=== PATIENT | female | born 1995 | race Caucasian/White ===

== ENCOUNTER 2020-10-08 18:07 | Emergency (ER) | payer OTHER ==
[~2020-10-08] VITALS: Ht 167.6 cm; Wt 140.6 kg
[2020-10-08] MEDS ORDERED: AZELASTINE205.5 MCG/ NARES (18:31)
[2020-10-08 19:02] LABS: CALCIUM 9.3 mg/dL (8.5-10.1); CREATININE 0.6 mg/dL (0.6-1.3)
[2020-10-08 19:13] LABS: ALBUMIN 3.7 g/dL (3.4-5.0); TOTAL BILIRUBIN 0.4 mg/dL (<0.1-1.0); TOTAL PROTEIN 8.4 g/dL (6.4-8.2)
[2020-10-08 19:29] LABS: ABSOLUTE MONOCYTES 0.4 thou/uL (0.0-1.2); ABSOLUTE NEUTROPHILS 7.1 thou/uL (1.6-8.1); BASOPHILS 0.4 %; EOSINOPHILS 0.3 %; HEMATOCRIT 40.8 % (37.0-47.0); HEMOGLOBIN 13.6 gm/dL (12.0-15.0); LYMPHOCYTES 21.1 %; MCH 28.4 pg (26.0-34.0); MCHC 33.3 g/dL (28.0-37.0); MCV 85.1 fL (80.0-100.0); MONOCYTES 4.3 %; MPV 7.8 fl. (7.2-11.1); NUCLEATED RBCS 0 /100WBC; PLATELET COUNT* 265 thou/uL (150-400); POLYS 73.9 %; RDW-CV 13.7 % (10.5-14.5); WBC 9.6 thou/uL (4.0-11.0)
[2020-10-08 21:17] VITALS: BP 122/62
--- NOTE | 2020-10-11 17:28 | EKG ---
[place] [address] ELECTROCARDIOGRAM REPORT Name: GAGEIMAN CAMPBELLPHUONG N Room: [facility]#: [id number] Admission: 10/08/20 Attend Phys: Discharge: 10/08/20 Date of : 89 Date of Service: 10/08/202050 Report #: [id number] THIS REPORT FOR: //name// [facility] ED Test Date: 2020-10-08 Test Time: 20:51:12 Pat Name: PHUONG GAGE Department: Room: Gender: F [employer]: CARLA : 1995 Requested By: Cristiana Carias Order Number: [id number] MD: Siva Tobar Measurements Intervals [place] Rate: 94 P: 24 KS: 160 QRS: 32 QRSD: 87 T: 8 QT: 371 QTc: 464 Interpretive Statements Sinus rhythm Low voltage, precordial leads No previous ECG available for comparison Electronically Signed On 10-11-2020 17:28:10 CDT by Siva Tobar [email or web address] <ELECTRONICALLY SIGNED> By: Siva Tobar MD, [facility] 10/11/20 1728 50 50 Siva Tobar MD, FAC /EPI
== END 2020-10-08 21:18 | disposition home or self-care (01) ==
LOC: M.ERS 18:07
PROVIDERS: Family Medicine
DX: R60.0 Localized edema (principal); R06.00 Dyspnea, unspecified; R00.2 Palpitations